=== PATIENT | female | born 1990 | race Hispanic/Latino ===

== ENCOUNTER 2017-10-18 22:11 | Inpatient (IN) | payer OTHER ==
[2017-10-18 22:39] VITALS: BMI 32.8
[2017-10-18] MEDS: Lactated Ringer's 1,000 ML IV SCH (23:00)
[2017-10-18] MEDS ORDERED: Lidocaine 2% Inj (20ml) ONE ×2 (23:11→23:35)
[2017-10-18] MEDS ORDERED: Oxytocin 30 units/LR 500ML 30 UNITS/500 ML BAG IV ONE (23:12)
[2017-10-18] MEDS: Oxytocin 30 units/LR 500ML 30 U/500 ML BAG IV SCH (23:30)
[2017-10-19] MEDS ORDERED: Oxycodone/Acetaminophen 5/325 mg Tab PO PRN ×2 (00:14)
[2017-10-19] MEDS: Lactated Ringer's 1,000 ML IV SCH (00:15)
[2017-10-19] MEDS ORDERED: Ketamine 50 mg/ml Inj (10 ml) ONE (00:38)
[2017-10-19] MEDS ORDERED: Midazolam 2 MG/2 ML VIAL ONE (00:38)
[2017-10-19 00:43] LABS: BASO % 0.2 % (0.0-2.0); EOS # 0.1 K/uL (0.0-0.7); EOS % 0.5 % (0.0-4.0); LYMPH # 1.7 K/uL (1.0-4.3); LYMPH % 16.5 % (20.0-40.0); MEAN CELL VOLUME 90.2 fl (81.0-99.0); MEAN CORPUSCULAR HEMOGLOBIN 30.1 pg (27.0-31.0); MEAN CORPUSCULAR HGB CONC 33.4 g/dL (33.0-37.0); MONO # 1.3 K/uL (0.0-0.8); MONO % 12.6 % (0.0-10.0); NEUT # 7.4 K/uL (1.8-7.0); NEUT % 70.2 % (50.0-75.0); NRBC % 0.1 % (0.0-0.0); RED CELL DISTRIBUTION WIDTH 12.9 % (11.5-14.5); WHITE BLOOD COUNT 10.6 K/uL (4.8-10.8)
[2017-10-19] MEDS ORDERED: Succinylcholine 200 mg/10 ml Inj IV ONE (01:16)
[2017-10-19] MEDS ORDERED: Propofol 10 mg/ml Inj (20 ML) ONE (01:16)
[2017-10-19] MEDS: Oxytocin 30 units/LR 500ML 30 U/500 ML BAG IV SCH (04:03)
[2017-10-19 08:20] LABS: BASO % 0.1 % (0.0-2.0); EOS % 0.1 % (0.0-4.0); LYMPH # 1.7 K/uL (1.0-4.3); LYMPH % 13.9 % (20.0-40.0); MEAN CELL VOLUME 90.1 fl (81.0-99.0); MEAN CORPUSCULAR HEMOGLOBIN 30.6 pg (27.0-31.0); MONO # 1.1 K/uL (0.0-0.8); MONO % 8.7 % (0.0-10.0); NEUT # 9.6 K/uL (1.8-7.0); NEUT % 77.2 % (50.0-75.0); RBC 3.09 Mil/uL (3.80-5.20); RED CELL DISTRIBUTION WIDTH 12.6 % (11.5-14.5); WHITE BLOOD COUNT 12.4 K/uL (4.8-10.8)
[2017-10-19 08:25] LABS: HEMOGLOBIN 9.5 g/dL (12.0-16.0)
--- NOTE | 2017-10-19 09:35 | OBADHP ---
Datetime: 10/19/2017 04:13 Admit Comment, IP Provider: This is 26 y/o F, , IUP @ 37.5 with previouse comes to the OB ED c/o CTX every 2 to 3 mins which started 1 hour ago. Patient is for BVAC Denies LOF/BV, good FM ROS unremarkable Denies any PMH 1 prior C/Section Denies any KDA Meds: PNV VS and exam as above A/P: 26 y/o F, , IUP @ 37.5 with previouse for - Active labor - Admit patient - Initiate labor, NVD protocol - LAbs - Review chart - reevaluation Case discussed with Dr. Paz --- JPatel, PGY-1 Addendum: I Examined Patient up Presentation. Plan to Admit for Management of Labor. Maternal Well-Being and Well-Being Reassuring at This Time. All Patient Questions Answered. Pelvic Type - PN: Adequate Extremities - PN: Normal Abdomen - PN: Normal Back - PN: Normal Lungs - PN: Normal Heart - PN: Normal Thyroid - PN: Normal Neurologic - PN: Normal HEENT - PN: Normal General - PN: Normal FHR - Baseline A Provider: 130 Vital Signs Provider: Reviewed; Within Normal Limits IP Chief Complaint: Uterine contractions NICHD Variability Prov Fetus A: Moderate 6-25bpm NICHD Accel Fetus A IP Provider: [id number] FHR Category Provider Fetus A: Category I NICHD Decel Fetus A IP Provider: None Dilatation, Provider: 6 Effacement, Provider: 90 Station, Provider: -2 Genitourinary Exam: Normal EGA AdmitDate IP: 37.6 IP Adm Impression: Term, intrauterine IP Admit Plan: Admit to unit; Initiate labor protocol
[2017-10-19] MEDS ORDERED: Nasal Spray(Ocean spray) NAS PRN (09:47)
--- NOTE | 2017-10-19 09:49 | OBDS ---
DELIVERY PERSONNEL Delivery Doctor: Azul Paz MD Scrub Nurse: Elham Grewal Advanced Solutions Architect: Lluvia Bhatia RN Anesthesiologist: Tere Spivey MD Resident: Nyla Hassan MATERNAL INFORMATION Delivery Anesthesia: Local; General Medications in Delivery: Lidocaine Estimated Blood Loss (ml): 600 Placenta Cultured: No Maternal Complications: Precipitous Labor (<3hrs); Other Other Maternal Complications: Repair of B/L sulcus tear under general anesthesia Provider Comments: Patient delivered viable infant male with Apgars of 9 and 9 at one and 5 minutes respectively. Placenta delivered spontaneously. Patient with third-degree laceration with bilateral cervical extensions. Area infiltrated with 1% lidocaine. Due to difficulty visualizing entire laceration, decision made for IV sedation and patient transferred to the operating room. In operating room, patient given IV sedation and eventually general anesthesia. Anal sphincter rep aired with interrupted sutures of 0 Vicryl. Cervical lacerations and vaginal mucosa repaired with 2. 0 Rapide. Remainder of laceration repaired with interrupted and running sutures of 2. 0 repeat. After repair, laceration appeared hemostatic. Rayo catheter placed. Vagina packed with vaginal packing. LABOR SUMMARY EDC: 11/03/2017 00:00 No. Babies in Womb: 1 Attempted: Yes Labor Anesthesia: None LABOR INFORMATION Reason for Induction: Not Applicable Onset of Labor: 10/18/2017 21:00 Complete Dilatation: 10/18/2017 23:10 Oxytocin: N/A Group B Beta Strep: Negative Antibiotics # of Doses: 0 Steroids Given: None Reason Steroids Not Administered: Not Applicable MEMBRANES Membranes Rupture Method: Spontaneous Rupture of Membranes: 10/18/2017 23:10 Length of Rupture (hrs): 0.23 Amniotic Fluid Color: Light Meconium Amniotic Fluid Amount: Moderate Amniotic Fluid Odor: Normal STAGES OF LABOR Stage 1 hrs: 2 Stage 1 min: 10 Stage 2 hrs: 0 Stage 2 min: 14 Stage 3 hrs: 0 Stage 3 min: 6 Total Time in Labor hrs: 2 Total Time in Labor min: 30 VAGINAL DELIVERY Episiotomy: None Laceration Extension: Third Degree Laceration Type: Sulcus Laceration Repair: Yes Laceration Repair Note: Refer to delivery note. Initial Vag Sponge Count: 10 Final Vag Sponge Count: 50 Initial Vag Sharps Count: 16 Final Vag Sharps Count: 16 Sponge Count Correct: Yes Sharps Count Correct: Yes CSECTION DELIVERY Primary Indication: N/A BABY A INFORMATION Delivery Date/Time: 10/18/2017 23:24 Method of Delivery: Vaginal Born in Route : No : Successful Forceps: N/A Vacuum Extraction: N/A Shoulder Dystocia : No SHOULDER DYSTOCIA BABY A Infant Delivery Date/Time: 10/18/2017 23:24 PRESENTATION/POSITION BABY A Presentation: Cephalic Cephalic Presentation: Vertex Breech Presentation: N/A PLACENTA INFORMATION BABY A Placenta Delivery Time : 10/18/2017 23:30 Placenta Method of Delivery: Spontaneous Placenta Status: Delivered SCORES BABY A Heart Rate 1 min: >100 bpm Resp Effort 1 min: Good Cry Reflex Irritability 1 min: Cough or Sneeze or Pulls Away Muscle Tone 1 min: Active Motion Color 1 min: Body [place], Extremities Blue Resuscitation Effort 1 min: N/A SCORE 1 MIN: 9 Heart Rate 5 min: >100 bpm Resp Effort 5 min: Good Cry Reflex Irritability 5 min: Cough or Sneeze or Pulls Away Muscle Tone 5 min: Active Motion Color 5 min: Body [place], Extremities Blue Resuscitation Effort 5 min: N/A SCORE 5 MIN: 9 INFORMATION BABY A Gestational Age at Delivery: 37.5 Gestational Status: Term Infant Outcome : Liveborn Condition : Stable Infant Sex: Male IDENTIFICATION/MEDS BABY A WEIGHT/LENGTH BABY A Birthweight (gms): 3650 Infant Weight (lb): 8 Weight (oz): 1 Infant Length Inches: 18.00 Length cms: 45.7 CORD INFORMATION BABY A No. Cord Vessels: 3 Nuchal Cord : N/A Infant Suction: None
[2017-10-19] MEDS ORDERED: Lansinoh for Breast Feeding Mothers TP ONE (21:18)
[2017-10-20 06:55] LABS: MEAN CELL VOLUME 90.1 fl (81.0-99.0); MEAN CORPUSCULAR HEMOGLOBIN 30.5 pg (27.0-31.0); MEAN CORPUSCULAR HGB CONC 33.9 g/dL (33.0-37.0); RBC 2.94 Mil/uL (3.80-5.20); RED CELL DISTRIBUTION WIDTH 12.7 % (11.5-14.5); WHITE BLOOD COUNT 10.7 K/uL (4.8-10.8)
[2017-10-20] MEDS ORDERED: Benzocaine/Menthol SPRAY TOP PRN (08:53)
[2017-10-20 19:08] VITALS: BP 133/84; PULSE 101; RESP 20; TEMP 98.6; O2SAT 100
== END 2017-10-20 14:30 | disposition home or self-care (01) | DRG 775 ==
LOC: H.EROB2 22:11 → H.L&D 23:05 → H.OB/GYN 10-19 07:00
PROVIDERS: ADMIT Obstetrics & Gynecology; ATTEND Obstetrics & Gynecology
PROC: 10E0XZZ Delivery of Products of Conception, External Approach (ICD-10-PCS; principal; 2017-10-18)
PROC: 0DQR0ZZ Repair Anal Sphincter, Open Approach (ICD-10-PCS; 2017-10-18)
PROC: 4A1HXCZ Monitoring of Products of Conception, Cardiac Rate, External Approach (ICD-10-PCS; 2017-10-18)
DX: O34.219 Maternal care for unspecified type scar from previous cesarean delivery (principal); O70.20 Third degree perineal laceration during delivery, unspecified; Z37.0 Single live birth; N85.8 Other specified noninflammatory disorders of uterus; O62.3 Precipitate labor; Z3A.37 37 weeks gestation of pregnancy